=== PATIENT | female | born 1965 | race Caucasian/White ===

== ENCOUNTER 2016-11-09 13:19 | Observation (INO) ==
--- NOTE | 2016-11-09 13:33 | Emergency Department Note ---
Disposition Clinical Impression: Transient cerebral ischemia Qualifiers: Transient cerebral ischemia type: unspecified Qualified Code(s): G45.9 - Transient cerebral ischemic attack, unspecified Disposition: Admitted As Inpatient Condition: Fair Referrals: Ben Stewart DO [Primary Care Provider] - Time of Disposition: 15:37 Neuro HPI - General Stated Complaint: thinks I had a stroke Time Seen by Provider: 11/09/16 13:22 Source: patient Mode of arrival: wheelchair Limitations: no limitations Nursing Notes Reviewed: Yes Vital Signs Reviewed: Yes - History of Present Illness HPI Narrative: 51-year-old with a history of previous TIA who comes in with acute onset of left -sided facial weakness slurred speech and left arm weakness. Last known well was 12:34 PM. Onset of Symptoms Date: 11/09/16 Onset of Symptoms Time: 12:34 Timing confirmed by: family member Location: speech, left face, left arm History of same: No Severity: moderate Quality: weakness, numbness Symptoms Improving: No Improves with: none Worsens with: none Context: sudden onset On Anticoagulants: No Associated symptoms: Denies: confusion, chest pain, cough, diaphoresis, fever/ chills, headaches, loss of appetite, malaise - Related Data Home Medications: Home Medications Medication Instructions Recorded Confirmed Prednisone 07/11/15 07/11/15 Hydrocodone/Acetaminophen [Vicodin 05/19/16 Es 7.5-300 mg Tablet] Lasix 05/19/16 Muscle Relaxer 05/19/16 Valium 05/19/16 Previous Rx's Medication Instructions Recorded HydrOXYzine Pamoate 25 mg PO TID PRN #30 capsule 05/19/16 Mupirocin [Bactroban Oint] 1 appl TP BID #44 g 05/19/16 Sulfamethoxazole/Trimeth DS 1 each PO BID #20 tablet 05/19/16 [Bactrim DS] Allergies/Adverse Reactions: Allergies Allergy/AdvReac Type Severity Reaction Status Date / Time ampicillin Allergy Rash Verified 07/11/15 14:38 clindamycin Allergy Rash Verified 07/11/15 14:38 clopidogrel [From Plavix] Allergy See Verified 07/11/15 14:38 Comments ketorolac [From Toradol] Allergy Anxiety Verified 07/11/15 14:38 Penicillins Allergy Rash Verified 07/11/15 14:38 Constitutional: Denies: fever, chills, weakness, weight change Eyes: Denies: eye pain, eye discharge, vision change ENT ED: Denies: ear pain, throat pain, dental pain, hearing loss, epistaxis, congestion, dysphagia Cardiovascular: Denies: chest pain, palpitations, dyspnea on exertion, edema, syncope Respiratory: Denies: cough, dyspnea, wheezes, hemoptysis, stridor Gastrointestinal: Denies: abdominal pain, nausea, vomiting, diarrhea, constipation, hematemesis, melena, hematochezia Genitourinary: Denies: dysuria, frequency, hematuria, discharge Musculoskeletal: Denies: back pain, neck pain, arthralgia, myalgia Integumentary: Denies: rash, abrasion, lesions Neurological: Reports: weakness, numbness. Denies: headache, paresthesias, confusion, abnormal gait, vertigo Psychiatric: Denies: anxiety, depression, suicidal thoughts, homicidal thoughts , auditory hallucinations, visual hallucinations Endocrine: Denies: fatigue Hematological/Lymphatic: Denies: easy bleeding, easy bruising Allergic/Immunologic: Denies: facial swelling, urticaria Past Medical History - Past Medical History Medical history: Reports: non-contributory, TIA Surgical history: Reports: other Psychiatric history: Reports: no psych history - Social History Smoking Status: Never smoker Smokeless Tobacco Status: No Alcohol use: Reports: none Physical Exam - General Limitations: no limitations General appearance: alert - Head Head exam: atraumatic, normocephalic, normal inspection - Eye Eye exam: Present: normal appearance, PERRL, EOMI - ENT ENT exam: normal exam, normal oropharynx, mucous membranes moist - Neck Neck exam: Present: normal inspection, full ROM, trachea midline - Chest Chest inspection: Present: normal inspection, symmetric chest wall rise - Respiratory Respiratory exam: Present: normal lung sounds bilaterally - Cardiovascular Cardiovascular exam: Present: regular rate, normal rhythm, normal heart sounds - Abdominal Exam Abdominal exam: Present: soft, Non-Tender. Absent: tenderness, distention, guarding, rebound, rigidity - Extremities Exam Extremities exam: Present: normal inspection, full ROM. Absent: tenderness, pedal edema - Expanded Lower Extremity Exam Neurovascular/Tendon exam: Absent: motor deficit, sensory deficit, tendon deficit Gait: not tested/not observed - Back Exam Back exam: Present: normal inspection, full ROM. Absent: tenderness - Neurological Exam Neurological exam: Present: alert, oriented X3 - Psychiatric Psychiatric exam: Present: normal affect, normal mood - Skin Skin exam: Present: warm, dry, intact, normal color Course - Consultations Consultation #1: Stroke alert CT is negative per Dr. Werner radiology Time: 13:48 Consultation #2: Stroke alert per Dr.Hannawi SINGH neurology, patient is not a TPA candidate he recommends a CTA of the head and neck and admission and an MRI in the next 24 hours. Time: 14:13 Consultation #3: Discussed with Dr. Wheat, admit. Time: 15:36 Vital Signs Temperature 97.6 F 11/09/16 13:23 Pulse Rate 97 11/09/16 13:23 Respiratory Rate 18 11/09/16 13:23 Blood Pressure 141/109 11/09/16 13:23 O2 Sat by Pulse Oximetry 97 11/09/16 13:23 Temperature 97.6 F 11/09/16 13:31 Pulse Rate 73 11/09/16 14:18 Respiratory Rate 16 11/09/16 14:18 Blood Pressure 121/74 11/09/16 14:18 O2 Sat by Pulse Oximetry 95 11/09/16 14:18 Oxygen Delivery Oxygen Delivery Room Air Neuro Symptoms/Deficit - Lab Data Lab results reviewed: Yes I reviewed the patient's lab results. Result diagrams: 11/09/16 13:38 11/09/16 13:38 Lab Results 11/09/16 11/09/16 11/09/16 Range/Units 13:26 13:38 13:38 WBC 8.1 (4.3-11.1) K/mcL RBC 5.07 H (3.82-4.97) M/mcL Hgb 13.9 (11.5-15.4) g/dL Hct 43.0 (35.3-44.9) % MCV 84.8 (83.0-100.0) fL MCH 27.4 L (28.0-33.3) pg MCHC 32.3 (31.6-35.5) g/dL RDW 13.1 (11.5-14.5) % Plt Count 380 (140-400) K/mcL MPV 9.0 L (9.4-12.4) fL Immature Gran % 0.2 (0-4) % Seg Neutrophils % 53.4 % Lymphocytes % 36.7 % Monocytes % 7.7 % Eosinophils % 1.5 % Basophils % 0.5 % Neutrophils # 4.3 (1.6-8.9) K/mcL Lymphocytes # 3.0 (0.6-4.6) K/mcL Monocytes # 0.6 (0.0-1.3) K/mcL Eosinophils # 0.1 (0.0-0.6) K/mcL Basophils # 0.0 (0.0-0.2) K/mcL PT 11.5 (9.4-12.1) Seconds INR 1.1 APTT 30.1 (26.0-36.0) Seconds Sodium (136-145) mEq/L Potassium (3.5-4.5) mEq/L Chloride (98-109) mEq/L Carbon Dioxide (19-29) mEq/L BUN (7-20) mg/dL Creatinine (0.57-1.11) mg/dL Est GFR ( Amer) (> 60) Est GFR (Non-Af Amer) (> 60) BUN/Creatinine Ratio (6-26) Glucose (70-99) mg/dL POC Glucose 94 H (58-89) Calculated Osmolality (280-300) Calcium (8.6-10.8) mg/dL Troponin I (0-0.03) ng/mL 11/09/16 11/09/16 Range/Units 13:38 13:38 WBC (4.3-11.1) K/mcL RBC (3.82-4.97) M/mcL Hgb (11.5-15.4) g/dL Hct (35.3-44.9) % MCV (83.0-100.0) fL MCH (28.0-33.3) pg MCHC (31.6-35.5) g/dL RDW (11.5-14.5) % Plt Count (140-400) K/mcL MPV (9.4-12.4) fL Immature Gran % (0-4) % Seg Neutrophils % % Lymphocytes % % Monocytes % % Eosinophils % % Basophils % % Neutrophils # (1.6-8.9) K/mcL Lymphocytes # (0.6-4.6) K/mcL Monocytes # (0.0-1.3) K/mcL Eosinophils # (0.0-0.6) K/mcL Basophils # (0.0-0.2) K/mcL PT (9.4-12.1) Seconds INR APTT (26.0-36.0) Seconds Sodium 140 (136-145) mEq/L Potassium 3.6 (3.5-4.5) mEq/L Chloride 106 (98-109) mEq/L Carbon Dioxide 26 (19-29) mEq/L BUN 17 (7-20) mg/dL Creatinine 0.82 (0.57-1.11) mg/dL Est GFR ( Amer) > 60 (> 60) Est GFR (Non-Af Amer) > 60 (> 60) BUN/Creatinine Ratio 21 (6-26) Glucose 101 H (70-99) mg/dL POC Glucose (58-89) Calculated Osmolality 292 (280-300) Calcium 9.9 (8.6-10.8) mg/dL Troponin I 0.01 (0-0.03) ng/mL - Radiology Data Radiology results reviewed: Yes I reviewed the patient's radiology results. Head CT 11/09/16 13:26 IMPRESSION: No acute intracranial abnormality. D/ / 11/09/2016 13:54:50 Marcie Werner MD / jason Interpreting Provider: Marcie Werner MD Head CTA 11/09/16 14:14 IMPRESSION: No flow limiting stenosis or branch occlusion identified. D/ / Ti Mc MD / Ti Mc MD Interpreting Provider: Ti Mc MD Neck CTA 11/09/16 14:14 IMPRESSION: No flow limiting stenosis or branch occlusion identified. D/ / Ti Mc MD / Ti Mc MD Interpreting Provider: Ti Mc MD Stroke Scale - Level of Consciousness LOC: Alert - LOC Questions LOC Questions: Answers both correctly - LOC Commands LOC Commands: Performs both correctly - Best Gaze Best Gaze: Normal - Visual Visual: No visual loss - Facial Palsy Facial Palsy: Partial, total, or near-total paralysis of lower face - Motor Arms Motor Arm-Left: Drift, does NOT hit bed Motor Arm-Right: No drift for 10 seconds - Motor Legs Motor Leg-Left: No drift for 5 seconds Motor Leg-Right: No drift for 5 seconds - Limb Ataxia Limb Ataxia: Normal, No Ataxia - Sensory Sensory: Mild to moderate loss, "not as sharp" - Best Language Best Language: No aphasia - Dysarthria Dysarthria: Mild, slurs some words - Extinction and Inattention Extinction and Inattention: Normal - NIHSS Total Score NIHSS Total Score: 5 TPA Checklist - Eligibilty for IV tPA 1. LKW equal to or less than 4.5 hours be before treatment: Yes 2. Clinical diagnosis of ischemic stroke causing deficit: Yes 3. Age 18 years or older: Yes - Contraindications 4. Evidence of intracranial hemorrhage on pretreatment CT: No 5. Presentation suggests subarachnoid hem, even if CT normal: No 6. CT shows multilobar infarction: No 7. History of intracranial hemorrhage: No 8. Known neoplasm, arteriovenous malformation, or aneurysm: No 9. Significant head trauma (w/ LOC) or CVA in last 3 months: No 10. Intracranial or intraspinal surgery in 3 months: No 11. Arterial puncture at non-compressable site/LP in 7 days: No 12. BP elevated (systolic > 185 or diastolic > 110): No 13. Abnormal Blood Glucose (<50 or >400mg/dl): No 14. Active internal bleeding: No 15. Known bleeding risk (including; not limited to 16-18): No 16. Heparin/argatroban/bivalirudin w/in 48hrs & PTT > normal: No 17. Platelet count less than 100,000/MM3: No 18. Current or recent use of anticoagualants (see protocol): No - Relative Contraindications 19. Only minor or rapidly improving stroke symptoms: Yes 20. Seizure at onset w/ postictal residual neuro impairments: No 21. : No 22. Current/recent use Effient (7 days) or Brilinta (5 days): No 24. GI or urinary tract hemorrhage in last 21 days: No 25. Myocardial infarction within last 3 months: No - LKW: 3-4.5 hrs Add. Contraindications 26. Age greater than 80 years: No 27. Taking an oral anticoagualant regardless of INR: No 28. Severe CVA as assessed (NIHSS > 25) or by imaging: No 29. Combination of previous CVA AND diabetes: No Patient/family understanding: The patient/family members have been counseled and understood the risk, benefit , and alternatives of treatment.
[2016-11-09 13:51] LABS: Basophils % 0.5 %; Eosinophils # 0.1 K/mcL (0.0-0.6); Eosinophils % 1.5 %; Hemoglobin 13.9 g/dL (11.5-15.4); Immature Granulocytes % 0.2 % (0-4); Lymphocytes % 36.7 %; Mean Corpuscular HGB Conc 32.3 g/dL (31.6-35.5); Mean Corpuscular Hemoglobin 27.4 pg (28.0-33.3); Mean Corpuscular Volume 84.8 fL (83.0-100.0); Monocytes # 0.6 K/mcL (0.0-1.3); Monocytes % 7.7 %; Neutrophils # 4.3 K/mcL (1.6-8.9); Platelet Count 380 K/mcL (140-400); Red Blood Count 5.07 M/mcL (3.82-4.97); Red Cell Distribution Width 13.1 % (11.5-14.5); Segmented Neutrophils % 53.4 %
[2016-11-09 13:57] LABS: INR 1.1
[2016-11-09 14:00] LABS: Activated Partial Thrombo Time 30.1 Seconds (26.0-36.0)
[2016-11-09 14:02] LABS: Prothrombin Time 11.5 Seconds (9.4-12.1)
[2016-11-09 14:03] LABS: BUN/Creatinine Ratio 21 (6-26); Blood Urea Nitrogen 17 mg/dL (7-20); Calcium 9.9 mg/dL (8.6-10.8); Carbon Dioxide 26 mEq/L (19-29); Chloride 106 mEq/L (98-109); Glucose 101 mg/dL (70-99); Osmolality,Calculated 292 (280-300); Potassium 3.6 mEq/L (3.5-4.5); Sodium 140 mEq/L (136-145); eGFR For African Americans > 60 (> 60); eGFR For Non-African Americans > 60 (> 60)
[2016-11-09] MEDS ORDERED: Aspirin 81 MG TAB.CHEW PO STA (15:34)
[2016-11-09] MEDS ORDERED: Naloxone 0.4 MG/ML INJ IVP PRN (15:44)
[2016-11-09] MEDS ORDERED: Acetaminophen 325 MG TABLET PO PRN (15:44)
[2016-11-09 16:17] LABS: Hemoglobin A1C 5.2 %
[2016-11-09] MEDS ORDERED: *HR* HYDROcodone/Acet 5/325 mg TABLET PO PRN (17:10)
--- NOTE | 2016-11-09 17:18 | Internal Med History&Physical ---
Date of Encounter: 11/09/16 Time of Encounter: 16:40 Assessment and Plan (1) Transient cerebral ischemia Current visit: Yes Status: Suspected Observation the [facility]. Will get MRI of the head, 2-D echocardiogram, check lipid profile and A1c level. Will consult physical therapy for evaluation. Her symptoms are already subsiding. Qualifiers: Transient cerebral ischemia type: other Qualified Code(s): G45.8 - Other transient cerebral ischemic attacks and related syndromes (2) Migraine Current visit: Yes Status: Acute Patient with headache similar to her migraine although this began after her TIA symptoms started. Will treat symptomatically. Follow up outpatient with neurology Qualifiers: Migraine type: other Status migrainosus presence: without status migrainosus Intractability: not intractable Qualified Code(s): G43.809 - Other migraine, not intractable, without status migrainosus (3) Osteoarthritis Current visit: Yes Status: Chronic Continue home medications for this condition. Qualifiers: Osteoarthritis location: unspecified site Osteoarthritis type: other Qualified Code(s): M19.90 - Unspecified osteoarthritis, unspecified site Internal Medicine - H&P: HPI Chief complaint: Left-sided facial droop and left-sided weakness Admitted From: Emergency Dept Plans for Post Hospital Care: Home History of present illness: Ms. Espinosa is a 51 year old female with a history of arthritis, complex migraine with Prior TIA related to the ER with complaints of left-sided facial droop, facial numbness and some weakness in her left upper and lower extremity that began around 1 PM this afternoon. Her symptoms lasted for about 2 hours and since then they have been improving. The patient's was witnessed to this episode. He does not recollect patient having any seizure-like activity or any bowel or bladder incontinence. She began to have a headache soon after she developed the symptoms that has remained but is getting better. She denies any fever or chills or night sweats. No nausea or vomiting. Past Med Surg Social Fam HX - Past Medical History Attestation: Yes The following information was validated with the patient. Medical history: migraine (Complex), TIA Psychiatric history: no psych history - Past Surgical History Surgical History: other - Social History Smoking Status: Never smoker Smokeless Tobacco Status: No Alcohol use: none Internal Medicine - H&P: Meds Diazepam [Valium] 5 mg PO BID 11/09/16 [History] HYDROcodone/Acet 5/325 mg [[place] 5-325 mg] 1 tab PO DAILY PRN 11/09/16 [History] Methocarbamol [Robaxin] 500 mg PO Q8H 11/09/16 [History] Pregabalin [Lyrica] 225 mg PO BID 11/09/16 [History] Allergies ampicillin Allergy (Verified 07/11/15 14:38) Rash clindamycin Allergy (Verified 11/09/16 15:56) Swelling of the Eye Penicillins Allergy (Verified 07/11/15 14:38) Rash clopidogrel [From Plavix] Adverse Reaction (Verified 11/09/16 15:52) See Comments EXCESSIVE BRUISING- ketorolac [From Toradol] Adverse Reaction (Verified 11/09/16 15:56) Vomiting All Systems PM: A 10-system review of systems was performed and is negative for pertinent findings except as documented above in the HPI. - Constitutional Constitutional: no chills, no fever(s), no night sweats - EENT Eyes: no change in vision, no discharge, no pain, no photophobia Ears: no ear discharge, no ear pain, no tinnitus Nose, mouth and throat: no dysphagia, no nasal discharge, no neck pain, no sore throat - Cardiovascular Cardiovascular ROS IM: no chest pain, no diaphoresis, no dyspnea, no lightheadedness, no palpitations, no syncope - Respiratory Respiratory: no cough, no dyspnea, no wheezing, no excessive phlegm production - Gastrointestinal Gastrointestinal: no abdominal pain, no diarrhea, no hematemesis, no hematochezia, no melena, no nausea, no vomiting - Genitourinary Genitourinary: no change in urinary stream, no dysuria, no flank pain, no hematuria - Musculoskeletal Musculoskeletal ROS IM: no numbness, no tingling - Integumentary Integumentary IM: no rash, no unusual bruising - Neurological Neurological ROS: focal weakness, no confusion, no convulsions, no numbness, no tingling, no tremor(s) - Hematologic/Lymphatic Hematologic/Lymphatic: no easy bruising - Constitutional Vitals: Temp Pulse Resp BP Pulse Ox 97.6 F 67 16 111/78 99 11/09/16 13:31 11/09/16 15:47 11/09/16 16:44 11/09/16 16:44 11/09/16 15:47 General appearance: Present: cooperative, mild distress, A&O X 3, pleasant, answers questions appropriately - Head Head exam: Present: atraumatic, normocephalic - Eye Eye exam: Present: EOMI, PERRL, conjuntiva pink, sclera anicteric - Neck Neck exam general surgery: Present: supple, trachea midline. Absent: lymphadenopathy - Respiratory Respiratory exam: Present: CTAB. Absent: accessory muscle use, rales, rhonchi, wheezes - Cardiovascular Cardiovascular exam: Present: RRR, +S1, +S2. Absent: diastolic murmur, gallop, rubs, systolic murmur - GI/Abdominal GI/Abdominal exam: Present: normal bowel sounds, soft, no peritoneal signs. Absent: distended, tenderness - Extremities Exam Extremities exam: Present: warm, radial pulses palpable and symetrical. Absent : calf tenderness, cyanotic, pedal edema - Neurological Exam Neurological exam: Present: alert, CN II-XII intact, oriented X3, no focal deficits. Absent: pronater drift, facial droop, speech deficit Additional comments: Has some decreased sensation on her left side of the face and her left hand Internal Med - H&P Results - Labs CBC & Chem 7: 11/09/16 13:38 11/09/16 13:38 - Impressions Impressions Head CT 11/09/16 13:26 IMPRESSION: No acute intracranial abnormality. D/ / 11/09/2016 13:54:50 Marcie Werner MD / jason Interpreting Provider: Marcie Werner MD Head CTA 11/09/16 14:14 IMPRESSION: No flow limiting stenosis or branch occlusion identified. D/ / Ti Mc MD / Ti Mc MD Interpreting Provider: Ti Mc MD Neck CTA 11/09/16 14:14 IMPRESSION: No flow limiting stenosis or branch occlusion identified. D/ / Ti Mc MD / Ti Mc MD Interpreting Provider: Ti Mc MD - Attending Attestation This document has been at least partially created by [employer] recognition technology by Dr. Cates. Errors in grammar, wording or other phrases may exist. If errors are found after the documentation is signed, they will be addressed individually in the addendum section of this document when appropriate.
[2016-11-09] MEDS: *HR* Heparin 5,000 UNIT/ML VIAL SQ SCH (18:21)
[2016-11-09] MEDS: Methocarbamol 500 MG TABLET PO SCH (18:21)
[2016-11-09] MEDS: diazePAM 5 MG TABLET PO SCH (22:14)
[2016-11-09] MEDS: Pregabalin 75 MG CAPSULE PO SCH (22:14)
[2016-11-10] MEDS: Methocarbamol 500 MG TABLET PO SCH ×2 (01:05→11:03)
[2016-11-10 04:51] LABS: Chol/HDL Ratio 3.3 (0-4.9)
[2016-11-10] MEDS: *HR* Heparin 5,000 UNIT/ML VIAL SQ SCH (05:42)
[2016-11-10] MEDS ORDERED: Aspirin 81 MG TAB.CHEW PO SCH (09:00)
--- NOTE | 2016-11-10 10:17 | ECHO - Doppler Report ---
Echo with Saline Contrast Name: Patricia Espinosa Date of Study: 11/10/2016 Date: 1965 Ht: 65.0 in Medical Record#: [id number] Age: 51 Wt: 230.0 lb Gender: Female BSA: 2.1 Order #: [id number] Location: [facility] Room #: [id number] Reading Physician: Britni Sharma DO Weights And Measures Inspector: Gladys Murillo Ordering Physician: Heidy Cates MD Primary Physician: Ben Stewart DO Indications: Transient Ischemic Attack Impressions: LVEF 60%. Normal left ventricular size and systolic function. Normal diastolic function of the left ventricle on this study. Normal right ventricular size and function. Mild mitral regurgitation. Mild tricuspid regurgitation. No pulmonary hypertension. PFO is present with saline bubble study. Left Ventricular Wall Motion: Rest Echo Findings All wall segments showed normal motion. Findings: Study Quality * Technically adequate exam. ECG Findings * Sinus bradycardia. Left Ventricle * LVEF 60%. * Normal LV chamber size, wall thickness and function. * Normal left ventricular diastolic function. Left Atrium * Normal left atrial size. Mitral Valve * Normal mitral valve structure. * No mitral stenosis. * Mild mitral regurgitation. Aortic Valve * No aortic regurgitation. * Trileaflet aortic valve. * Normal aortic valve structure. * No aortic stenosis. Tricuspid Valve * Normal tricuspid valve structure. * Mild tricuspid regurgitation. * Estimated RA pressure is 3 mmHg. * Estimated RVSP is 21 mmHg. * No pulmonary hypertension. Pulmonic Valve * Pulmonic valve is not well visualized. * No pulmonic stenosis. * No pulmonic regurgitation. Pulmonary Artery * Pulmonary artery not well visualized. Right Ventricle * Normal right ventricular structure and function. Right Atrium * Normal right atrial size. Pericardium * There is no pericardial effusion present. Interatrial Septum * There is a PFO by agitated saline contrast, IVC * Normal IVC dimensions and inspiratory collapse. Aorta * Normally sized aortic root. History Family History of CAD Contrast: Agitated saline 20 ml. Measurements: BP: 96/ 88 2D Normal Values IVSd: 1.10 cm 0.6 - 1.0 cm LVIDd: 4.50 cm 3.7 - 5.6 cm LVPWd: 1.10 cm 0.6 - 1.1 cm LVIDs: 2.80 cm 1.5 - 3.6 cm AO: 2.60 cm < 4.0 cm LA: 3.40 cm 2.0 - 4.0cm %FS: 37.80 cm >25 % LA volume: 56 Mitral Valve Peak E:.74 m/sec Peak A:.61 m/sec E/A Ratio:1.2 Peak E' Lat Abad:13.1 cm/s Peak E' Med Abad:7.7 cm/s E/E' Lat Ratio:5.6 E/E' Med Ratio:9.5 Tricuspid Valve TV Regurg Peak Grad: 18.00mmHg TV Regurg Peak Abad: 2.10m/sec Updated by Britni Sharma on 11/10/2016 10:10:25 AM electronically signed on 11/10/2016 10:11:44 AM with status of Final Wall Motion Castaneda: 1=Normal, 2=Hypokinesis, 3=Akinesis, 4=Dyskinesis, 5=Aneurysmal, 6=Hyperkinetic, X=Not Visualized (Blank)=Missing
[2016-11-10] MEDS: Pregabalin 75 MG CAPSULE PO SCH (11:03)
[2016-11-10] MEDS: diazePAM 5 MG TABLET PO SCH (11:03)
[2016-11-10 14:59] VITALS: BP 120/67
--- NOTE | 2016-11-10 15:05 | Discharge Summary ---
Date of Encounter: 11/10/16 Time of Encounter: 11:00 - Discharge Diagnosis (1) Transient cerebral ischemia Priority: Primary Status: Suspected Comments: Patient was admitted last night from the emergency department, complaining of left-sided facial droop, facial numbness, and weakness in left arm and leg that began around 1:00 yesterday afternoon. Her symptoms lasted for about 2 hours and then begin improving. Patient's was with her throughout the episode , and he does not remember her having any seizure-like activity or bowel or bladder incontinence. She denies nausea or vomiting or vision changes. Her MRI was negative, her lipid panel is negative and she takes is Zocor 20 mg daily , her head and neck CTAs both were negative and showed no flow limiting stenosis or occlusion. Patient's A1c is 5.2%. Echocardiogram shows LVEF 60%, normal left ventricular size and systolic function, normal diastolic function of the LV, normal right ventricular size and function mild mitral regurg, mild tricuspid regurg, no pulmonary hypertension, and PFO is present with saline bubble study. Patient reports positive history of either PFO oh or PDA she is unsure which. She states that she was seeing a physician who is going to send her to [place] to have it repaired and then never did when he became angry at her, per her story. Today patient has no deficits and states that all symptoms have resolved except for some numbness that remain in her left fourth and fifth digits. She has no facial droop, her speech is clear, and she denies vision changes. She is using her hand left hand to use the phone in the room during the exam. Patient will continue her home medications. Qualifiers: Transient cerebral ischemia type: other Qualified Code(s): G45.8 - Other transient cerebral ischemic attacks and related syndromes (2) Migraine Priority: Secondary Status: Chronic Comments: Patient states that she has chronic migraines. One began yesterday immediately prior to her TIA symptoms. She does see Dr. Orr for migraines, and she will follow up outpatient neurology. She states her headache is better now and denies any numbness tingling or blurred vision to her face at this time. Patient should continue her home medications Qualifiers: Migraine type: other Status migrainosus presence: without status migrainosus Intractability: not intractable Qualified Code(s): G43.809 - Other migraine, not intractable, without status migrainosus (3) Obesity (BMI 30-39.9) Priority: Secondary Status: Chronic Comments: Chronic. Lifestyle changes. (4) Chronic pain Priority: Secondary Status: Chronic Comments: Patient has had multiple orthopedic surgeries to her arms and shoulders. 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 She will follow up with him as scheduled. Qualifiers: Chronic pain type: other chronic pain Qualified Code(s): G89.29 - Other chronic pain (5) Osteoarthritis Priority: Secondary Status: Chronic Comments: Chronic. Continue home medications. Qualifiers: Osteoarthritis location: unspecified site Osteoarthritis type: other Qualified Code(s): M19.90 - Unspecified osteoarthritis, unspecified site - Discharge Medications Prescriptions: Simvastatin [Zocor] 20 mg PO HS #30 tablet Home Medications: Diazepam [Valium] 5 mg PO BID 11/09/16 [History] HYDROcodone/Acet 5/325 mg [[place] 5-325 mg] 1 tab PO DAILY PRN 11/09/16 [History] Methocarbamol [Robaxin] 500 mg PO Q8H 11/09/16 [History] Pregabalin [Lyrica] 225 mg PO BID 11/09/16 [History] Simvastatin [Zocor] 20 mg PO HS #30 tablet 11/10/16 [Rx] Allergies/Adverse Reactions: Allergies ampicillin Allergy (Verified 07/11/15 14:38) Rash clindamycin Allergy (Verified 11/09/16 15:56) Swelling of the Eye Penicillins Allergy (Verified 07/11/15 14:38) Rash clopidogrel [From Plavix] Adverse Reaction (Verified 11/09/16 15:52) See Comments EXCESSIVE BRUISING- ketorolac [From Toradol] Adverse Reaction (Verified 11/09/16 15:56) Vomiting Procedures/tests Complete & Pending: Procedures Performed prior 72 hours Category Date Time Status ECG 12 lead ECG [ECG] Routine Y 11/09/16 13:41 Completed EV echocardiogram Routine Y 11/10/16 17:29 Completed Date of admission: 11/09/16 16:24 Primary care physician: Derek Zhu Discharging clinician: Chandni Boogie Anticipated date of discharge: 11/10/16 - Patient Status Disposition: Home, Self-Care Condition: Good Functional capacity at discharge: independent ambulation Overall status at discharge: patient is progressing back to baseline - Discharge Instructions Forms: ED Satisfaction Letter Additional Instructions: Take your normal home medications as directed. Follow up with Dr. Orr and Dr. Mohan as scheduled. Please make an appointment to follow up with your family doctor within the next week. Return as needed for any problems or concerns or concerning change in your condition. - Diet and Activity Activity: increase activity as tolerated, resume usual activities as tolerated Diet: advance to your usual diet Hospital course: Ms. Espinosa is a 51 year old female who arrives from home accompanied by . She reports two-hour history of left-sided facial droop and numbness, left arm heaviness and numbness, and left leg numbness prior to having a migraine headache. Patient normally has migraine headaches. For the time patient reached the emergency department her symptoms are beginning subside. MRI, CTA of head and neck all negative. MRI showed no infarct. CTAs both showed no flow-limiting stenosis or occlusion. Patient will be started on simvastatin 20 mg at bedtime her A1c is 5.2%. Her echocardiogram was negative LVEF 60%, normal left ventricle size and still systolic function, normal diastolic function the left ventricle. PFO is present. Patient follows with Dr. Orr for migraines and Dr. Mohan for her chronic pain needs. Patient now states that she does not have a headache, and says that the only residual effect she has from her TIA are some numbness to left fourth and fifth fingers. She is using her hand however during the exam to handle the phone and the room. Patient does not have any facial droop or speech deficits or vision changes. Patient is stable for discharge. - Time Spent with Patient Total time spent providing and/or coordinating discharge services: - Constitutional Vitals: Temp Pulse Resp BP Pulse Ox 97.4 F L 66 14 120/67 97 11/10/16 14:58 11/10/16 14:58 11/10/16 14:58 11/10/16 14:58 11/10/16 14:58 General appearance: Present: cooperative, mild distress, A&O X 3, pleasant, answers questions appropriately - Head Head exam: Present: normal inspection - Eye Eye exam: Present: normal appearance, PERRL, conjuntiva pink. Absent: nystagmus - ENT ENT exam: Present: mucous membranes moist, normal exam - Neck Neck exam general surgery: Present: normal inspection. Absent: lymphadenopathy , tenderness - Respiratory Respiratory exam: Present: CTAB. Absent: rales, rhonchi, stridor, wheezes - Cardiovascular Cardiovascular exam: Present: RRR, +S1, +S2. Absent: diastolic murmur, systolic murmur - Expanded Cardiovascular Exam Peripheral pulses: 2+: Dorsalis Pedis (L) PM, Dorsalis Pedis (R) PM - GI/Abdominal GI/Abdominal exam: Present: soft. Absent: normal bowel sounds, tenderness - Extremities Exam Extremities exam: Present: full ROM, normal capillary refill, normal inspection , warm, radial pulses palpable and symetrical. Absent: pedal edema, tenderness - Neurological Exam Neurological exam: Present: alert, oriented X3, no focal deficits, strengths equal and symetr throughout. Absent: pronater drift, facial droop, speech deficit - Expanded Neurological Exam Neurological exam expanded: Absent: ataxia, expressive aphasia Patient oriented to: Present: person, place, time Speech: Present: expressive aphasia, receptive aphasia Upper motor neuron: pronator drift: Normal Neuro motor strength exam: LUE: 5, RUE: 5, LLE: 5, RLE: 5 Coma Scale Eye Opening: Spontaneous Coma Scale Motor Response: Obeys Commands Coma Scale Verbal Response: Oriented Coma Scale Total: 15
--- NOTE | 2016-11-10 16:26 | Electrocardiograph Report ---
[address] [place] [address] Test Date: 2016-11-09 Pat Name: Patricia Espinosa Department: 105 Room: 3B23 Gender: F [employer]: : 1965 Requested By: Chandni Boogie Order Number: [id number] Reading MD: Brehane Munroe MD Measurements Intervals [place] Rate: 84 P: 23 NC: 179 QRS: -18 QRSD: 93 T: -10 QT: 360 QTc: 402 Interpretive Statements SINUS RHYTHM WITH OCCASIONAL VENTRICULAR PREMATURE COMPLEXES MODERATE VOLTAGE CRITERIA FOR LVH INFERIOR MYOCARDIAL INFARCTION OF INDETERMINATE AGE WITH POSTERIOR EXTENSION Electronically Signed On 11-10-2016 16:24:09 EDT by Berhane Munroe MD
== END 2016-11-10 18:25 | disposition home or self-care (01) ==
LOC: EMEROO 13:19 → 3BNU 13:19
PROVIDERS: ADMIT Internal Medicine; ATTEND Registered Nurse

== ENCOUNTER 2017-01-30 20:45 | Observation (INO) ==
[2017-01-30 21:34] LABS: Basophils % 0.4 %; Eosinophils # 0.2 K/mcL (0.0-0.6); Eosinophils % 2.5 %; Hematocrit 40.9 % (35.3-44.9); Hemoglobin 13.2 g/dL (11.5-15.4); Immature Granulocytes % 0.3 % (0-4); Lymphocytes # 2.6 K/mcL (0.6-4.6); Lymphocytes % 36.1 %; Mean Corpuscular HGB Conc 32.3 g/dL (31.6-35.5); Mean Corpuscular Hemoglobin 28.1 pg (28.0-33.3); Mean Corpuscular Volume 87.2 fL (83.0-100.0); Mean Platelet Volume 8.6 fL (9.4-12.4); Monocytes # 0.6 K/mcL (0.0-1.3); Monocytes % 7.8 %; Neutrophils # 3.9 K/mcL (1.6-8.9); Platelet Count 375 K/mcL (140-400); Red Blood Count 4.69 M/mcL (3.82-4.97); Segmented Neutrophils % 52.9 %
--- NOTE | 2017-01-30 21:42 | Emergency Department Note ---
Disposition Clinical Impression: DVT of upper extremity (deep vein thrombosis) Qualifiers: Affected thrombotic vein of extremity: brachial Laterality: right Chronicity: acute Qualified Code(s): I82.621 - Acute embolism and thrombosis of deep veins of right upper extremity Disposition: Admitted As Inpatient Condition: Good Time of Disposition: 23:18 Extremity Problem HPI - General Chief complaint: ED Extremity Problem,Nontraumatic Stated complaint: + DVT right arm Time Seen by Provider: 01/30/17 20:56 Source: patient Mode of arrival: ambulatory Limitations: no limitations Nursing Notes Reviewed: Yes Vital Signs Reviewed: Yes - History of Present Illness HPI Narrative: Mrs. Espinosa, a 51yo female, presents from outpatient ultrasound to the emergency department with confirmed DVT in her right upper extremity. Symptom onset appx 1 week ago. \She notes tenderness in her right anticubital space with radiation around to her elbow. This is the location of a peripheral IV placed appx 1 week ago. PMH: TIA, PFO, chronic pain ROS: POS: pain in right upper extremity Neg: fever, chills, chest pain, palpitations, cough, dyspnea, back pain, BL LE pain, abdominal pain. Pain Scale: 2 - Related Data Home Medications Medication Instructions Recorded Confirmed Methocarbamol [Robaxin] 500 mg PO Q8H 11/09/16 01/30/17 diazePAM [Valium] 5 mg PO BID 11/09/16 01/30/17 Cyclobenzaprine HCl 5 mg PO BID PRN 01/30/17 01/30/17 Furosemide [Lasix] 20 mg PO DAILY 01/30/17 01/30/17 Meloxicam [Mobic] 7.5 mg PO BID PRN 01/30/17 01/30/17 Nortriptyline [Pamelor] 10 mg PO HS 01/30/17 01/30/17 Promethazine [Phenergan] 25 mg PO BID PRN 01/30/17 01/30/17 Propranolol [Inderal] 20 mg PO DAILY 01/30/17 01/30/17 Allergies Allergy/AdvReac Type Severity Reaction Status Date / Time ampicillin Allergy Rash Verified 01/15/17 14:55 clindamycin Allergy Swelling Verified 01/15/17 14:55 of the Eye Penicillins Allergy Rash Verified 01/15/17 14:55 clopidogrel [From Plavix] AdvReac See Verified 01/15/17 14:55 Comments ketorolac [From Toradol] AdvReac Vomiting Verified 01/15/17 14:55 All systems ED: reviewed and negative except as stated. Past Medical History - Past Medical History Medical history: Reports: CVA, DVT, migraine, TIA Surgical history: Reports: hysterectomy, other Psychiatric history: Reports: depression - Social History Smoking Status: Never smoker Smokeless Tobacco Status: No Alcohol use: Reports: none Drug use: Reports: none Physical Exam Vital Signs Reviewed General: Patient is alert, oriented, and in no acute distress. HEENT: No facial asymmetry. Head is normocephalic and atraumatic. PERRLA. Trachea midline. Cardiovascular: Heart regular rate and rhythm without clicks, rubs, gallops, or murmurs. No JVD. PMI nondisplaced. No pedal edema. Bilateral radial and posterior tibial pulses 2/4. Right antecubital joint exquisitely tender palpation. Respiratory: Symmetric chest rise with good respiratory effort. Bilateral breath sounds are clear without wheezing, crackles, or rhonchi. Abdomen: Bowel sounds present normoactive x-4 quadrants. Abdomen is soft, nondistended, and nontender. Psych: Patient's affect is appropriate for situation. - General Limitations: no limitations General appearance: alert, in no apparent distress Course Course Narrative: Upper extremity venous duplex performed today shows no compression and absent flow in the right brachial and right basilic veins. Patient is laying comfortably. She has no chest pains, no tachycardia, no tachypnea. No clinical concern at this time for progression of her right upper extremity DVT to the lung. Laboratory work is unremarkable; patient's renal function is normal. Will provide Lovenox 1 mg/kg. Spoke with the admitting hospitalist, Dr. Lovelace, who agrees to accept the patient. Her insurance is such that she will need overnight admission with social work assistance for appropriate coverage of her anticoagulant. Vital Signs Temperature 97.4 F L 01/30/17 20:46 Pulse Rate 69 01/30/17 20:46 Respiratory Rate 18 01/30/17 20:46 Blood Pressure 145/93 01/30/17 20:46 O2 Sat by Pulse Oximetry 98 01/30/17 20:46 Temperature 97.4 F L 01/30/17 20:46 Pulse Rate 69 01/30/17 20:46 Respiratory Rate 14 01/30/17 22:31 Blood Pressure 146/87 01/30/17 22:31 O2 Sat by Pulse Oximetry 98 01/30/17 20:46 Oxygen Delivery Oxygen Delivery Room Air Extremity Problem, Nontraumati - Medical Records Medical records reviewed: Yes I reviewed the patient's medical records. - Lab Data Result diagrams: 01/30/17 21:27 01/30/17 21:27 Lab Results 01/30/17 01/30/17 Range/Units 21:27 21:27 WBC 7.3 (4.3-11.1) K/mcL RBC 4.69 (3.82-4.97) M/mcL Hgb 13.2 (11.5-15.4) g/dL Hct 40.9 (35.3-44.9) % MCV 87.2 (83.0-100.0) fL MCH 28.1 (28.0-33.3) pg MCHC 32.3 (31.6-35.5) g/dL RDW 14.0 (11.5-14.5) % Plt Count 375 (140-400) K/mcL MPV 8.6 L (9.4-12.4) fL Immature Gran % 0.3 (0-4) % Seg Neutrophils % 52.9 % Lymphocytes % 36.1 % Monocytes % 7.8 % Eosinophils % 2.5 % Basophils % 0.4 % Neutrophils # 3.9 (1.6-8.9) K/mcL Lymphocytes # 2.6 (0.6-4.6) K/mcL Monocytes # 0.6 (0.0-1.3) K/mcL Eosinophils # 0.2 (0.0-0.6) K/mcL Basophils # 0.0 (0.0-0.2) K/mcL Sodium 143 (136-145) mEq/L Potassium 3.7 (3.5-4.5) mEq/L Chloride 111 H (98-109) mEq/L Carbon Dioxide 25 (19-29) mEq/L BUN 17 (7-20) mg/dL Creatinine 0.76 (0.57-1.11) mg/dL Est GFR ( Amer) > 60 (> 60) Est GFR (Non-Af Amer) > 60 (> 60) BUN/Creatinine Ratio 22 (6-26) Glucose 100 H (70-99) mg/dL Calculated Osmolality 298 (280-300) Calcium 9.2 (8.6-10.8) mg/dL - Radiology Data Radiology results reviewed: Yes I reviewed the patient's radiology results. Attestation Statement - Attestation Attestation: I personally interviewed and examined this patient and my medical decision- making was reviewed with the ED Resident Physician, Dr. Portillo. I agree with the documented findings, disposition and treatment plan as described except to the extent set forth below. Patient is a pleasant 51-year-old white female who presents to the emergency department sent from the outpatient imaging with printed results of a positive right upper extremity DVT study. Patient with clot present in the right upper extremity. This is most likely secondary to repeated peripheral IV access from 2 prior ED visits and hospitalization for TIA as well as diverticulosis. Patient yet having worsening antecubital pain over the past few days. Patient denies any form of chest pain pressure or heaviness, no shortness of breath, no lightheadedness or syncope. Patient's vital signs are stable here in the emergency department. She was sent to us for an abnormal radiology result. I agree with physical exam findings as documented. Patient was hemodynamically stable here in the ED. No prior history of blood clots. We did obtain baseline labs to assess renal function. Due to patient's [facility] coverage and need for social work nurse and education we will admit the patient to the hospitalist service for anticoagulation and outpatient discharge planning. Patient was accepted by the hospitalist remains hemodynamically stable at this time.
[2017-01-30 21:46] LABS: BUN/Creatinine Ratio 22 (6-26); Blood Urea Nitrogen 17 mg/dL (7-20); Calcium 9.2 mg/dL (8.6-10.8); Carbon Dioxide 25 mEq/L (19-29); Chloride 111 mEq/L (98-109); Glucose 100 mg/dL (70-99); Osmolality,Calculated 298 (280-300); Potassium 3.7 mEq/L (3.5-4.5); Sodium 143 mEq/L (136-145); eGFR For African Americans > 60 (> 60); eGFR For Non-African Americans > 60 (> 60)
[2017-01-30] MEDS ORDERED: *HR* Enoxaparin 120 MG/0.8 ML SYRINGE SQ STA (21:54)
[2017-01-30] MEDS ORDERED: Acetaminophen 325 MG TABLET PO PRN (22:24)
[2017-01-30] MEDS ORDERED: *HR* Promethazine 25 MG/ML VIAL IVP PRN (22:24)
[2017-01-30] MEDS ORDERED: Naloxone 0.4 MG/ML INJ IVP PRN (22:24)
[2017-01-30] MEDS ORDERED: *HR* Morphine 2 MG/ML SYRINGE IVP PRN (22:24)
[2017-01-30] MEDS ORDERED: *HR* HYDROcodone/Acet 5/325 mg TABLET PO PRN (22:27)
--- NOTE | 2017-01-30 22:31 | Internal Med History&Physical ---
Date of Encounter: 01/30/17 Time of Encounter: 22:29 Assessment and Plan (1) DVT (deep venous thrombosis) Current visit: Yes Status: Acute Right upper extremity DVT, await final report of the Doppler Start Lovenox, and Coumadin Morphine for pain Omeprazole for GI prophylaxis and Lovenox for DVT prophylaxis. The patient will be admitted for observation. Full code. Time spent on this admission 40 minutes. Qualifiers: DVT location: upper extremity Affected thrombotic vein of extremity: brachial Laterality: right Chronicity: acute Qualified Code(s): I82.621 - Acute embolism and thrombosis of deep veins of right upper extremity (2) PFO (patent foramen ovale) Current visit: Yes Status: Acute the patient has had it for years Reconsider repair (3) Transient cerebral ischemia Current visit: No Status: Suspected History of multiple TIAs in the past Qualifiers: Transient cerebral ischemia type: other Qualified Code(s): G45.8 - Other transient cerebral ischemic attacks and related syndromes (4) Osteoarthritis Current visit: No Status: Chronic Qualifiers: Osteoarthritis location: unspecified site Osteoarthritis type: other Qualified Code(s): M19.90 - Unspecified osteoarthritis, unspecified site (5) Migraine Current visit: No Status: Chronic Stable Qualifiers: Migraine type: other Status migrainosus presence: without status migrainosus Intractability: not intractable Qualified Code(s): G43.809 - Other migraine, not intractable, without status migrainosus (6) Obesity (BMI 30-39.9) Current visit: No Status: Chronic Internal Medicine - H&P: HPI Chief complaint: left arm pain Admitted From: Emergency Dept History of present illness: Ms. Espinosa is a 51 year old female with a past medical history of multiple TIAs with a PFO that has not been repaired, migraines, anxiety, severe scoliosis, hyperlipidemia who was apparently in the emergency room a few days ago specifically on January 15 where a peripheral IV line was placed. She did complain of pain since that time on her right upper extremity. A duplex done in the ER according to the ER physician showed a right DVT in the brachial vein and apparently the basilic vein is also affected, final report is pending. Patient was given a dose of Lovenox at the emergency room and admission was requested. Blood pressure is 145/93. Denies any other complaints Past Med Surg Social Fam HX - Past Medical History Medical history: CVA, DVT, migraine, TIA, other (PFO, multiple TIAs, osteoarthritis, hyperlipidemia, scoliosis, diverticulosis, migraines, anxiety) Psychiatric history: depression - Past Surgical History Surgical History: hysterectomy, orthopedic, other, other (Knee surgery, biceps rotator cuff surgeries) - Social History Smoking Status: Never smoker Smokeless Tobacco Status: No Alcohol use: none Drug use: none - Family History Father Living Status: Hx Family Cardiac Disorders: Yes (AAA) Hx Family Neuromuscular Disorders: Yes (Parkinsons) Hx Family Neurologic Disorders: Yes (CVA) - Additional Family History Additional family history: Father with AAA, CAD and CVA, mother with CVA Internal Medicine - H&P: Meds HYDROcodone/Acet 5/325 mg [[place] 5-325 mg] 1 tab PO DAILY PRN 11/09/16 [History] Methocarbamol [Robaxin] 500 mg PO Q8H 11/09/16 [History] Pregabalin [Lyrica] 225 mg PO BID 11/09/16 [History] diazePAM [Valium] 5 mg PO BID 11/09/16 [History] Simvastatin [Zocor] 20 mg PO HS #30 tablet 11/10/16 [Rx] Tramadol HCl [Ultram] 50 mg PO TID PRN #12 tab 01/15/17 [Rx] Allergies ampicillin Allergy (Verified 01/15/17 14:55) Rash clindamycin Allergy (Verified 01/15/17 14:55) Swelling of the Eye Penicillins Allergy (Verified 01/15/17 14:55) Rash clopidogrel [From Plavix] Adverse Reaction (Verified 01/15/17 14:55) See Comments EXCESSIVE BRUISING- ketorolac [From Toradol] Adverse Reaction (Verified 01/15/17 14:55) Vomiting All Systems PM: A 10-system review of systems was performed and is negative for pertinent findings except as documented above in the HPI. Review of systems: Pain in her right upper extremities 5 out of 10 in intensity, other systems out of the 10 reviewed were negative - Constitutional Vitals: Temp Pulse Resp BP Pulse Ox 97.4 F L 69 18 145/93 98 01/30/17 20:46 01/30/17 20:46 01/30/17 20:46 01/30/17 20:46 01/30/17 20:46 General appearance: Present: A&O X 3 - Head Head exam: Present: atraumatic, normocephalic - Eye Eye exam: Present: PERRL, conjuntiva pink, sclera anicteric Pupils: Present: PERRL - Neck Neck exam general surgery: Present: supple, trachea midline. Absent: lymphadenopathy - Respiratory Respiratory exam: Present: CTAB. Absent: accessory muscle use, rales, rhonchi, wheezes - Cardiovascular Cardiovascular exam: Present: RRR, +S1, +S2. Absent: diastolic murmur, gallop, rubs, systolic murmur - GI/Abdominal GI/Abdominal exam: Present: normal bowel sounds, soft, no peritoneal signs. Absent: distended, tenderness - Extremities Exam Extremities exam: Present: warm, radial pulses palpable and symetrical. Absent : calf tenderness, cyanotic, pedal edema Additional comments: Right upper extremity tenderness over the basilic pain, no erythema - Neurological Exam Neurological exam: Present: CN II-XII intact, oriented X3, no focal deficits. Absent: pronater drift, facial droop, speech deficit - Skin Skin exam: Present: dry, intact Internal Med - H&P Results - Labs CBC & Chem 7: 01/30/17 21:27 01/30/17 21:27
[2017-01-31 03:05] LABS: Hematocrit 38.3 % (35.3-44.9); Hemoglobin 12.3 g/dL (11.5-15.4); Mean Corpuscular HGB Conc 32.1 g/dL (31.6-35.5); Mean Corpuscular Hemoglobin 27.7 pg (28.0-33.3); Mean Corpuscular Volume 86.3 fL (83.0-100.0); Mean Platelet Volume 8.9 fL (9.4-12.4); Platelet Count 352 K/mcL (140-400); Red Blood Count 4.44 M/mcL (3.82-4.97); Red Cell Distribution Width 13.8 % (11.5-14.5)
[2017-01-31 03:11] LABS: Prothrombin Time 11.1 Seconds (9.4-12.1)
[2017-01-31 03:18] LABS: BUN/Creatinine Ratio 22 (6-26); Blood Urea Nitrogen 15 mg/dL (7-20); Carbon Dioxide 24 mEq/L (19-29); Chloride 112 mEq/L (98-109); Glucose 106 mg/dL (70-99); Osmolality,Calculated 291 (280-300); Potassium 3.8 mEq/L (3.5-4.5); Sodium 140 mEq/L (136-145); eGFR For African Americans > 60 (> 60); eGFR For Non-African Americans > 60 (> 60)
[2017-01-31] MEDS ORDERED: diazePAM 5 MG TABLET PO SCH (09:00)
[2017-01-31] MEDS ORDERED: *HR* Enoxaparin 100 MG/ML SYRINGE SQ SCH (09:00)
[2017-01-31] MEDS ORDERED: Pregabalin 75 MG CAPSULE PO SCH (09:00)
--- NOTE | 2017-01-31 09:38 | Internal Med Progress Note ---
<Kaylene Valdez - Last Filed: 01/31/17 12:57> Date of Encounter: 01/31/17 Time of Encounter: 09:38 - Assessment and plan (1) DVT of upper extremity (deep vein thrombosis) Status: Acute Assessment and plan: Thromboembolic risk factors: recent hospitalization, immobilization, obesity, recent vessel injury/IV trauma near location. Upper extremity venous duplex preliminary report demonstrates: Right brachial vein noncompressible with absent flow; right basilic vein noncompressible with absent flow. 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 pending final report. Clinical correlation to thrombi in subcutaneous vein just below the skin that is palpable on the right forearm proximal antecubital fossa. Begin anticoagulant therapy with Xarelto today. Patient informed to hold Mobic/ NSAIDS due to increased risk of GI bleeding. Continue morphine per pain GI prophylaxis: Omeprazole 20 mg by mouth daily DVT prophylaxis: Lovenox Patient will need to follow-up with her primary care provider in the next 7-10 days. Hematology and cardiology outpatient follow-up. 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 Qualifiers: Transient cerebral ischemia type: other Qualified Code(s): G45.8 - Other transient cerebral ischemic attacks and related syndromes (3) PFO (patent foramen ovale) Status: Chronic Assessment and plan: Consideration for repair of foramen ovale due to patency. Patient will need to consult with cardiology as well as hematology outpatient. (4) Migraine Status: Chronic Assessment and plan: stable Qualifiers: Migraine type: other Status migrainosus presence: without status migrainosus Intractability: not intractable Qualified Code(s): G43.809 - Other migraine, not intractable, without status migrainosus (5) Obesity (BMI 30-39.9) Status: Chronic - Subjective Interval history: Patient was seen and examined. She reports no acute events overnight. The right upper extremity in the proximal antecubital fossa remains warm, erythematous, and tender. She denies chest pain or difficulty breathing, heart palpitations, headache or changes in vision. Patient reports a history multiple TIAs that began 15 years ago for which she was diagnosed with patent foramen ovale at that time. She has been on anticoagulants in the past however , states that she was taken off them due to bruising. PT 11.1, INR 1.0 patient did not receive her Coumadin therapy as directed last night. Will initiate Xarelto therapy this afternoon. Patient told to hold Mobic due to increased risk of GI bleeding. - Constitutional Vitals: Temp Pulse Resp BP Pulse Ox 97.3 F L 61 16 117/81 97 01/31/17 07:42 01/31/17 07:42 01/31/17 07:42 01/31/17 07:42 01/31/17 07:42 General appearance: Present: A&O X 3 Exam: General: Cooperative, pleasant, no acute distress, alert and oriented 3, answers questions appropriately, obese HEENT: Normocephalic, atraumatic, neck supple, trachea midline, Conjunctiva pink , sclera anicteric, EOMI, PERRL, oral mucosa moist, no orophargeal erythema or exudates Respiratory: No accessory muscle usage, clear to auscultation bilaterally, no wheezes/rhonchi/rales appreciated Cardiovascular: Regular rate and rhythm, S1 and S2 present, no murmurs/rubs/ gallops/clicks appreciated GI/abdominal: Nondistended, nontender, soft, normal bowel sounds, no peritoneal signs Extremities: No calf tenderness, noncyanotic, no pedal edema appreciated, warm, lower extremity pulses palpable and symmetrical. There is an area of warmth, erythema, induration with tenderness to palpation in the right proximal antecubital fossa. Neurological: Alert and oriented 3, no facial droop, no focal deficits Skin: Warm, Dry, intact Internal Medicine: Result - Labs CBC & Chem 7: 01/31/17 02:47 01/31/17 02:47 Labs: Short CBC 01/31/17 Range/Units 02:47 WBC 7.6 (4.3-11.1) K/mcL Hgb 12.3 (11.5-15.4) g/dL Hct 38.3 (35.3-44.9) % Plt Count 352 (140-400) K/mcL BMP 01/31/17 02:47 Sodium 140 Potassium 3.8 Chloride 112 H Carbon Dioxide 24 BUN 15 Creatinine 0.69 Glucose 106 H Calcium 9.0 - ABG Interpretation ABG results: PT/INR, D-dimer PT 11.1 Seconds (9.4-12.1) 01/31/17 02:47 Consult Discharge Plan - Plan Instructions: Rivaroxaban (By mouth), Peripheral Vascular Disorders (DC) Referrals: [facility] [Provider Group] (PFO with history of recurrent TIAs who presented with superficial thrombi in upper extremity.. Consider PFO closure.) Ben Stewart DO [Primary Care Provider] - (Dr. Stewart's office will contact you with follow up appointment. If they do not call you by Thursday please call the office.) Darek Sagastume MD [Partnered Physician] - (We have requested an appt. The office will call you with date and time within 3 days.) Prescriptions: Rivaroxaban [Xarelto] 20 mg PO DAILY #30 tablet <Vinicius Del Cid - Last Filed: 02/01/17 07:35> Date of Encounter: 02/01/17 - Constitutional Vitals: Temp Pulse Resp BP Pulse Ox 98.0 F 76 16 122/78 97 01/31/17 11:15 01/31/17 11:15 01/31/17 11:15 01/31/17 11:15 01/31/17 11:15 Internal Medicine: Result - Labs CBC & Chem 7: 01/31/17 02:47 01/31/17 02:47 - ABG Interpretation ABG results: PT/INR, D-dimer PT 11.1 Seconds (9.4-12.1) 01/31/17 02:47 - Attending Attestation D/C today, see d/c summary
[2017-01-31 11:18] VITALS: BP 122/78
--- NOTE | 2017-01-31 12:56 | Discharge Summary ---
<Kaylene Valdez - Last Filed: 01/31/17 13:17> Date of Encounter: 01/31/17 Time of Encounter: 12:49 - Discharge Diagnosis (1) DVT of upper extremity (deep vein thrombosis) Priority: Primary Status: Acute Qualifiers: Affected thrombotic vein of extremity: brachial Laterality: right Chronicity: acute Qualified Code(s): I82.621 - Acute embolism and thrombosis of deep veins of right upper extremity (2) Transient cerebral ischemia Priority: Secondary Status: Suspected Qualifiers: Transient cerebral ischemia type: other Qualified Code(s): G45.8 - Other transient cerebral ischemic attacks and related syndromes (3) PFO (patent foramen ovale) Priority: Secondary Status: Chronic (4) Migraine Priority: Secondary Status: Chronic Qualifiers: Migraine type: other Status migrainosus presence: without status migrainosus Intractability: not intractable Qualified Code(s): G43.809 - Other migraine, not intractable, without status migrainosus (5) Obesity (BMI 30-39.9) Priority: Secondary Status: Chronic - Discharge Medications Prescriptions: Rivaroxaban [Xarelto] 20 mg PO DAILY #30 tablet Home Medications: Methocarbamol [Robaxin] 500 mg PO Q8H 11/09/16 [History] diazePAM [Valium] 5 mg PO BID 11/09/16 [History] Cyclobenzaprine HCl 5 mg PO BID PRN 01/30/17 [History] Furosemide [Lasix] 20 mg PO DAILY 01/30/17 [History] Meloxicam [Mobic] 7.5 mg PO BID PRN 01/30/17 [History] Nortriptyline [Pamelor] 10 mg PO HS 01/30/17 [History] Promethazine [Phenergan] 25 mg PO BID PRN 01/30/17 [History] Propranolol [Inderal] 20 mg PO DAILY 01/30/17 [History] Rivaroxaban [Xarelto] 20 mg PO DAILY #30 tablet 01/31/17 [Rx] Allergies/Adverse Reactions: Allergies ampicillin Allergy (Verified 01/15/17 14:55) Rash clindamycin Allergy (Verified 01/15/17 14:55) Swelling of the Eye Penicillins Allergy (Verified 01/15/17 14:55) Rash clopidogrel [From Plavix] Adverse Reaction (Verified 01/15/17 14:55) See Comments EXCESSIVE BRUISING- ketorolac [From Toradol] Adverse Reaction (Verified 01/15/17 14:55) Vomiting Date of admission: 01/30/17 22:04 Primary care physician: Derek Zhu Consults: 01/31/17 12:43 Consult to Organ Tuner [CONS] Routine Reason for SW Consult: xerelto Discharging clinician: Vinicius Del Cid Anticipated date of discharge: 01/31/17 - Patient Status Disposition: Home, Self-Care Condition: Good Functional capacity at discharge: independent ambulation Overall status at discharge: patient is back to baseline - Discharge Instructions Instructions: Rivaroxaban (By mouth), Peripheral Vascular Disorders (DC) Follow Up With: [facility] [Provider Group] (PFO with history of recurrent TIAs who presented with superficial thrombi in upper extremity.. Consider PFO closure.) Ben Stewart, [Primary Care Provider] - (Dr. Stewart's office will contact you with follow up appointment. If they do not call you by Thursday please call the office.) Darek Sagastume MD [Partnered Physician] - (We have requested an appt. The office will call you with date and time within 3 days.) - Diet and Activity Activity: increase activity as tolerated Diet: advance to your usual diet Interval History: Patient was seen and examined. She reports no acute events overnight. The right upper extremity in the proximal antecubital fossa remains warm, erythematous, and tender. She denies chest pain or difficulty breathing, heart palpitations, headache or changes in vision. Patient reports a history multiple TIAs that began 15 years ago for which she was diagnosed with patent foramen ovale at that time. She has been on anticoagulants in the past however , states that she was taken off them due to bruising. PT 11.1, INR 1.0 patient did not receive her Coumadin therapy as directed last night. Will initiate Xarelto therapy this afternoon. Patient told to hold Mobic due to increased risk of GI bleeding. Hospital course: Ms. Espinosa is a 51 year old female who presented to [facility] emergency department on 01/30/17 after an outpatient ultrasound/upper extremity venous duplex demonstrated Right brachial vein noncompressible with absent flow; right basilic vein noncompressible with absent flow. Clinical correlation on physical examination demonstrated right proximal antecubital fossa with induration erythema warmth and tenderness to palpation. Patient received 110 mg of Lovenox subcutaneous in the emergency department and was admitted. Warfarin therapy was ordered however was not initiated. Patient will be started on a trial of Xarelto as free 30 day and she is instructed to follow-up with her primary care provider in the next 7-10 days for further evaluation and management as she may need a prior authorization form to continue therapy. Patient has a history of patent foramen ovale and multiple transient ischemic attacks. Patient is high risk for thromboembolic events/ stroke. Discussed risk and benefit of anticoagulant therapy with patient. Patient's questions were answered. She expressed understanding. Furthermore, patient is encouraged to follow-up with cardiology for further evaluation of patent foramen ovale and discussion of possible closure. Also patient may need follow-up regarding thrombosis/hypercoagulability with oncology hematology. During the course of her stay patient's vitals were stable. Afebrile. Nonfocal neurologic exam. Medically stable to discharge on anticoagulant therapy. - Time Spent with Patient Total time spent providing and/or coordinating discharge services: - Constitutional Vitals: Temp Pulse Resp BP Pulse Ox 98.0 F 76 16 122/78 97 01/31/17 11:15 01/31/17 11:15 01/31/17 11:15 01/31/17 11:15 01/31/17 11:15 General appearance: Present: A&O X 3 Exam: General: Cooperative, pleasant, no acute distress, alert and oriented 3, answers questions appropriately, obese HEENT: Normocephalic, atraumatic, neck supple, trachea midline, Conjunctiva pink , sclera anicteric, EOMI, PERRL, oral mucosa moist, no orophargeal erythema or exudates Respiratory: No accessory muscle usage, clear to auscultation bilaterally, no wheezes/rhonchi/rales appreciated Cardiovascular: Regular rate and rhythm, S1 and S2 present, no murmurs/rubs/ gallops/clicks appreciated GI/abdominal: Nondistended, nontender, soft, normal bowel sounds, no peritoneal signs Extremities: No calf tenderness, noncyanotic, no pedal edema appreciated, warm, lower extremity pulses palpable and symmetrical. There is an area of warmth, erythema, induration with tenderness to palpation in the right proximal antecubital fossa. Neurological: Alert and oriented 3, no facial droop, no focal deficits Skin: Warm, Dry, intact <Vinicius Del Cid - Last Filed: 01/31/17 15:14> Date of Encounter: 01/31/17 Date of admission: 01/30/17 22:04 Primary care physician: Derek Zhu Consults: 01/31/17 12:43 Consult to Organ Tuner [CONS] Routine Reason for SW Consult: [facility] course: Ms. Espinosa is a 51 year old female - Time Spent with Patient Total time spent providing and/or coordinating discharge services: - Constitutional Vitals: Temp Pulse Resp BP Pulse Ox 98.0 F 76 16 122/78 97 01/31/17 11:15 01/31/17 11:15 01/31/17 11:15 01/31/17 11:15 01/31/17 11:15 - Attending Attestation I examined this patient and my medical decision-making was reviewed with the [employer]/PA/Advanced Practice Nurse/Resident Physician. I agree with the documented findings, disposition and treatment plan as described except to the extent set forth below. DVT, d/c home on xarelto.
[2017-01-31] MEDS ORDERED: Aminoglycoside Consult 1 EACH MC ONE (15:49)
[2017-01-31] MEDS ORDERED: Warfarin perPT PO PRN (18:00)
[2017-01-31] MEDS ORDERED: *HR* Warfarin 5 MG TABLET PO SCH (18:00)
== END 2017-01-31 15:50 | disposition home or self-care (01) ==
LOC: EMEROO 20:45 → 3BNU 20:45
PROVIDERS: ADMIT Registered Nurse; ATTEND Registered Nurse

== ENCOUNTER 2019-06-20 09:30 | Observation (INO) ==
[~2019-06-20 09:30] MED LIST: Total Joint Mixture (50 ml) IR ONE
[2019-06-20] MEDS ORDERED: Lidocaine -MPF 1% 2 ML VIAL ID ONE (09:49)
[2019-06-20] MEDS ORDERED: Ringers Solution, Lactated 1,000 ML IVC SCH (10:00)
[2019-06-20] MEDS ORDERED: *HR* Midazolam HCl 5 MG/5 ML VIAL IVP ONE (10:53)
[2019-06-20] MEDS ORDERED: Lidocaine -MPF 2% 2 ML VIAL ONE (10:55)
[2019-06-20] MEDS ORDERED: Ondansetron 4 MG/2 ML VIAL ONE (10:55)
[2019-06-20] MEDS ORDERED: Celecoxib 200 MG CAPSULE PO ONE (11:01)
[2019-06-20] MEDS ORDERED: Gabapentin 300 MG CAPSULE PO ONE (11:01)
[2019-06-20] MEDS ORDERED: *HR* OxyCODONE ER (12 HR) 10 MG TABLET PO ONE (11:04)
[2019-06-20] MEDS ORDERED: *HR* HYDROmorphone (PF) 1 MG/ML SYRINGE IVP PRN (11:06)
[2019-06-20] MEDS ORDERED: *HR* Promethazine 25 MG/ML VIAL IVP PRN ×2 (11:06→16:52)
[2019-06-20] MEDS ORDERED: Albuterol 2.5 MG/3 ML NEBULIZER IH ONE (11:14)
[2019-06-20] MEDS ORDERED: Propofol 500 MG/50 ML INFUS..BTL ONE (11:18)
[2019-06-20] MEDS ORDERED: Ethanol\\Acetic Acid\\Na Ace\\Ben 1,000 ML IRRIG.SOLN IR ONE (11:36)
[2019-06-20] MEDS ORDERED: ROPIVACAINE/PF/NS 0.25% 1 EACH SYRINGE INTRAART ONE (11:50)
[2019-06-20] MEDS ORDERED: *HR* PHENYLEPHRINE 1,000 MCG/10 ML SYRINGE IVP ONE ×2 (12:39→13:14)
[2019-06-20] MEDS ORDERED: *HR* Propofol 200 MG/20 ML VIAL IVP ONE (13:12)
[2019-06-20 14:14] LABS: Hematocrit 39.1 % (35.3-44.9); Hemoglobin 12.5 g/dL (11.5-15.4)
[2019-06-20 15:29] LABS: Hematocrit 40.4 % (35.3-44.9)
[2019-06-20] MEDS ORDERED: Furosemide 20 MG TABLET PO PRN (16:52)
[2019-06-20] MEDS ORDERED: traMADol 50 MG TABLET PO PRN (16:52)
[2019-06-20] MEDS ORDERED: Temazepam 15 MG CAPSULE PO PRN (16:52)
[2019-06-20] MEDS ORDERED: Sennosides 8.6 MG TABLET PO PRN (16:52)
[2019-06-20] MEDS ORDERED: diazePAM 5 MG TABLET PO PRN (16:52)
[2019-06-20] MEDS ORDERED: Naloxone 0.4 MG/ML INJ IVP PRN (16:52)
[2019-06-20] MEDS ORDERED: MOM Conc 10 ML UD.LIQ PO PRN (16:52)
[2019-06-20] MEDS: *HR* OxyCODONE Immed Rel 5 MG TABLET PO PRN (17:02)
[2019-06-20] MEDS: Ringers Solution, Lactated 1,000 ML IVC SCH ×2 (18:18→21:03)
[2019-06-20] MEDS: Ascorbic Acid 500 MG TABLET PO SCH (18:18)
[2019-06-20] MEDS: Gabapentin 300 MG CAPSULE PO SCH ×2 (18:19→21:08)
[2019-06-20] MEDS: Ondansetron 4 MG/2 ML VIAL IVP PRN (21:03)
[2019-06-20] MEDS: HYDROcodone BIT/Homatropine 5 MG TABLET PO PRN ×2 (21:04→21:09)
[2019-06-21] MEDS: *HR* OxyCODONE Immed Rel 5 MG TABLET PO PRN ×2 (03:10→18:36)
[2019-06-21 05:02] LABS: Basophils % 0.2 %; Hematocrit 39.6 % (35.3-44.9); Hemoglobin 12.1 g/dL (11.5-15.4); Immature Granulocytes % 0.4 % (0-4); Lymphocytes # 0.8 K/mcL (0.6-4.6); Lymphocytes % 6.4 %; Mean Corpuscular HGB Conc 30.6 g/dL (31.6-35.5); Mean Corpuscular Hemoglobin 28.7 pg (28.0-33.3); Mean Corpuscular Volume 94.1 fL (83.0-100.0); Mean Platelet Volume 8.9 fL (9.4-12.4); Monocytes # 0.4 K/mcL (0.0-1.3); Monocytes % 3.5 %; Neutrophils # 10.7 K/mcL (1.6-8.9); Platelet Count 333 K/mcL (140-400); Red Blood Count 4.21 M/mcL (3.82-4.97); Segmented Neutrophils % 89.5 %
[2019-06-21 05:20] LABS: BUN/Creatinine Ratio 13 (6-26); Blood Urea Nitrogen 9 mg/dL (6-20); Calcium 8.9 mg/dL (8.6-10.3); Carbon Dioxide 22 mEq/L (23-29); Chloride 108 mEq/L (98-107); Glucose 139 mg/dL (70-105); Osmolality,Calculated 287 (280-300); Potassium 3.6 mEq/L (3.5-5.1); Sodium 138 mEq/L (136-145); eGFR For African Americans > 60 (> 60); eGFR For Non-African Americans > 60 (> 60)
[2019-06-21] MEDS: *HR* Enoxaparin 30 MG/0.3 ML SYRINGE SQ SCH ×2 (06:21→16:26)
[2019-06-21] MEDS: Multivit/Ca/Min/Fe/FA 1 TAB TABLET PO SCH (07:59)
[2019-06-21] MEDS: Ascorbic Acid 500 MG TABLET PO SCH ×2 (07:59→16:25)
[2019-06-21] MEDS: Gabapentin 300 MG CAPSULE PO SCH ×3 (09:39→21:35)
[2019-06-21] MEDS: Ondansetron 4 MG/2 ML VIAL IVP PRN (09:40)
[2019-06-21] MEDS: HYDROcodone BIT/Homatropine 5 MG TABLET PO PRN (16:28)
[2019-06-22] MEDS: HYDROcodone BIT/Homatropine 5 MG TABLET PO PRN (05:14)
[2019-06-22] MEDS: *HR* Enoxaparin 30 MG/0.3 ML SYRINGE SQ SCH (05:15)
[2019-06-22 05:43] LABS: Basophils % 0.4 %; Eosinophils # 0.2 K/mcL (0.0-0.6); Eosinophils % 2.4 %; Hematocrit 27.8 % (35.3-44.9); Immature Granulocytes % 0.6 % (0-4); Lymphocytes # 2.9 K/mcL (0.6-4.6); Lymphocytes % 34.7 %; Mean Corpuscular HGB Conc 30.9 g/dL (31.6-35.5); Mean Corpuscular Hemoglobin 28.4 pg (28.0-33.3); Mean Corpuscular Volume 91.7 fL (83.0-100.0); Mean Platelet Volume 9.3 fL (9.4-12.4); Monocytes # 0.8 K/mcL (0.0-1.3); Monocytes % 9.9 %; Neutrophils # 4.4 K/mcL (1.6-8.9); Platelet Count 280 K/mcL (140-400); Red Blood Count 3.03 M/mcL (3.82-4.97); Red Cell Distribution Width 15.7 % (11.5-14.5); White Blood Count 8.4 K/mcL (4.3-11.1)
[2019-06-22 05:51] LABS: Hemoglobin 8.6 g/dL (11.5-15.4)
[2019-06-22 06:23] LABS: BUN/Creatinine Ratio 19 (6-26); Blood Urea Nitrogen 16 mg/dL (6-20); Calcium 8.4 mg/dL (8.6-10.3); Carbon Dioxide 29 mEq/L (23-29); Chloride 106 mEq/L (98-107); Glucose 105 mg/dL (70-105); Osmolality,Calculated 290 (280-300); Potassium 3.8 mEq/L (3.5-5.1); Sodium 139 mEq/L (136-145); eGFR For African Americans > 60 (> 60); eGFR For Non-African Americans > 60 (> 60)
[2019-06-22] MEDS: Multivit/Ca/Min/Fe/FA 1 TAB TABLET PO SCH (07:32)
[2019-06-22] MEDS: Gabapentin 300 MG CAPSULE PO SCH (07:33)
[2019-06-22] MEDS: Ascorbic Acid 500 MG TABLET PO SCH (07:33)
[2019-06-22 09:14] LABS: Hematocrit 31.6 % (35.3-44.9); Hemoglobin 9.9 g/dL (11.5-15.4)
[2019-06-22 10:48] VITALS: BP 106/67
[2019-06-22] MEDS ORDERED: *HR* OxyCODONE Immed Rel 5 MG TABLET PO PRN (11:24)
== END 2019-06-22 12:30 | disposition home health service (06) ==
LOC: SAMDAY 09:30 → 3NENU 09:30
PROVIDERS: ADMIT Orthopaedic Surgery; ATTEND Orthopaedic Surgery